=== PATIENT | male | born 2000 | race Caucasian/White ===

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

== ENCOUNTER 2018-02-19 01:48 | Emergency (ER) | payer BC ==
[2018-02-19 01:52] VITALS: BP 125/50
--- NOTE | 2018-02-19 01:56 | EDPHY ---
H & P Stated Complaint: dislocated left shoulder while wrestling Time Seen by Provider: 02/19/18 01:55 HPI/ROS: HPI CHIEF COMPLAINT: Left shoulder dislocation HISTORY OF PRESENT ILLNESS: Otherwise healthy 17-year-old male presents emergency room with a left shoulder dislocation. Patient states that he was messing around in the basement of his [employer] house when he landed on his left shoulder sustaining most likely a dislocation. He presents emergency room complaining left lateral shoulder discomfort he is holding his left arm in abduction and flexion. Past Medical History: No significant medical history Past Surgical History: No significant surgical history Social History: Denies daily use of drugs alcohol tobacco. [employer] student. Family History: Noncontributory ROS REVIEW OF SYSTEMS: A comprehensive 10 point review of systems is otherwise negative aside from elements mentioned in the history of present illness. Exam Constitutional triage nursing summary reviewed, vital signs reviewed, awake/ alert. Eyes normal conjunctivae and sclera, EOMI, PERRLA. HENT normal inspection, atraumatic, moist mucus membranes, no epistaxis, neck supple/ no meningismus, no raccoon eyes. Respiratory clear to auscultation bilaterally, normal breath sounds, no respiratory distress, no wheezing. Cardiovascular rate normal, regular rhythm, no murmur, no edema, distal pulses normal. Gastrointestinal soft, non-tender, no rebound, no guarding, normal bowel sounds, no distension, no pulsatile mass. Genitourinary no CVA tenderness. Musculoskeletal left upper extremity: Neurovascularly intact good distal pulse , good cap refill, axillary nerve intact. Appears to be an anterior shoulder dislocation on exam. no midline vertebral tenderness, full range of motion, no calf swelling, no tenderness of extremities, no meningismus, good pulses, neurovascularly intact. Skin pink, warm, & dry, no rash, skin atraumatic. Neurologic awake, alert and oriented x 3, AAOx3, moves all 4 extremities equally, motor intact, sensory intact, CN II-XII intact, normal cerebellar, normal vision, normal speech. Psychiatric normal mood/affect. Heme/Lymph/Immune no lymphadenopathy. Differential Diagnosis: Includes but is not limited to in a particular order anterior shoulder dislocation, contusion, strain, fracture Medical Decision Making: Plan for this patient he appears to have clinically a anterior shoulder dislocation. Re-evaluation: 0201AM: SHOULDER DISLOCATION REDUCTION: Clinically has an anterior shoulder dislocation on exam. With gentle forward and downward traction I was able to relocate his left shoulder after gentle massage to his deltoid and left posterior scapula. The shoulder popped in appropriate position. Post reduction he is in neurovascularly intact with no significant pain. X-ray of the left shoulder was performed. X-ray of the left shoulder reviewed. Good alignment. No fracture. He is neurovascularly intact. Recommend ice, anti-inflammatory pain medicine staying in a sling follow up with Orthopedics. Return precautions discussed with the patient understands. Source: Patient - Personal History Current Tetanus/Diphtheria Vaccine: Unsure Current Tetanus Diphtheria and Acellular Pertussis (TDAP): Unsure - Medical/Surgical History Hx Asthma: No Hx Chronic Respiratory Disease: No Hx Diabetes: No Hx Cardiac Disease: No Hx Renal Disease: No Hx Cirrhosis: No Hx Alcoholism: No Hx HIV/AIDS: No Hx Splenectomy or Spleen Trauma: No Other PMH: strep throat, R leg surgery, - Social History Smoking Status: Never smoked Constitutional: Initial Vital Signs Temperature (C) 37.1 C 02/19/18 01:50 Heart Rate 88 02/19/18 01:50 Respiratory Rate 16 02/19/18 01:50 Blood Pressure 125/50 H 02/19/18 01:50 O2 Sat (%) 98 02/19/18 01:50 O2 Delivery Mode Room Air Allergies/Adverse Reactions: No Known Allergies Allergy (Unverified 02/19/18 01:50) Home Medications: Medication Instructions Recorded Cephalexin 10/28/17 Dexamethasone [Decadron 4 MG (RX)] 8 mg PO ONCE #2 tab 10/28/17 Departure - Departure Disposition: Home, Routine, Self-Care Clinical Impression: Shoulder dislocation Qualifiers: Encounter type: initial encounter Laterality: left Qualified Code(s): S43.005A - Unspecified dislocation of left shoulder joint, initial encounter Condition: Good Instructions: Shoulder Dislocation (ED) Additional Instructions: 1. Stay in your sling for comfort. 2. Ice your shoulder. 3. Anti-inflammatory pain medicine 4. Follow up with Orthopedics Referrals: NONE *PRIMARY CARE P,. [Primary Care Provider] - As per Instructions
== END 2018-02-19 02:20 | disposition home or self-care (01) ==
PROC: 0RSKXZZ Reposition Left Shoulder Joint, External Approach (ICD-10-PCS; principal; 2018-02-19)
DX: S43.015A Anterior dislocation of left humerus, initial encounter (principal); X58.XXXA Exposure to other specified factors, initial encounter; Y92.009 Unspecified place in unspecified non-institutional (private) residence as the place of occurrence of the external cause; Y99.8 Other external cause status; Y93.89 Activity, other specified
CPT/HCPCS: A4565